=== PATIENT | female | born 1945 | race Caucasian/White ===

== ENCOUNTER 2022-12-15 11:55 | Emergency (ER) | payer MEDICARE, SELFPAY ==
[2022-12-15 12:04] VITALS: BP 132/50; PULSE 57; RESP 18; TEMP 36.8; O2SAT 99
--- NOTE | 2022-12-15 12:30 | DI.CT_ITS ---
Exam(s) CT LUMBAR SPINE WO EXAM: CT LUMBAR SPINE WO CLINICAL HISTORY: back trauma. TECHNIQUE: Imaging Protocol: Axial computed tomography images with coronal and sagittal reformatted images were created and reviewed. COMPARISON: No exams were available for comparison FINDINGS: Bones: There are old superior compression deformities of T12, L1 and L2. There is a superior nash josue fracture deformity of L3 which appears acute. There is loss of 20 percent of the height of the vertebral body. There is a superior compression fracture deformity of L4 which does not appear to be acute. 2-3 mm anterolisthesis of L4 on L5 is present. This appears to be degenerative in nature. There are degenerative changes of the facets throughout the lumbar spine most marked at L4-5 and L5-S 1. The bones are osteopenic. Soft tissues: There do appear to be gallstones present. Atherosclerosis is present. No large disk h erniations are identified. IMPRESSION: 1. Acute appearing fracture of the superior endplate of L3 with loss of approximately 20 percent of t he height of the vertebral body. 2. Old compression fracture deformities of T12, L1, L2 and L4. 3. Osteopenia. 4. Findings were discussed with Dr. Mitzy Villatoro at 1:13 p.m. on 12/15/2022. RADIATION DOSE DELIVERED: 419.13mGy.cm Total DLP 419.13mGy.cm Total DLP DATA REPOSITORY: All CT scans at this facility are submitted to the National Radiology Data Registry (NRDR) Dose Index Registry (DIR) with the [employer] ([employer]). RADIATION OPTIMIZATION: All CT scans at this facility use at least one of these dose optimization te chniques: automated exposure control; mA and/or kV adjustment per patient size (includes targeted exa ms where dose is matched to clinical indication); or iterative reconstruction.
--- NOTE | 2022-12-15 12:34 | ED.GENADUL_ITS ---
Discharge Plan Disposition Patient Disposition: Home Discharge Details Clinical Impression: Acute low back pain due to trauma, Closed compression fracture of L3 vertebra Primary Care Provider: Unknown,Unknown ED Provider: Mitchell Villatoro Home Meds and New Rx's Prescriptions: New cyclobenzaprine 10 mg tablet 10 mg PO TID PRNQty: 30 0RF Continued citalopram 10 mg tablet 1 mg PO DAILY Patient Comments: TAKE 1 TABLET BY MOUTH ONCE DAILY furosemide 20 mg tablet 2 mg PO DAILY Patient Comments: TAKE 2 TO 3 TABLETS BY MOUTH ONCE DAILY Discharge Instructions Instructions: Vertebral Compression Fracture (ED) Additional Instructions: You were seen in the emergency department for low back pain after a fall. We performed a CAT scan and is showing a new acute compression fracture of the L3 vertebrae. You have some old compression fractures as well. Take [id number] Tylenol and Motrin per bottle directions over the next week to help with your symptoms. I have given you some cyclobenzaprine/Flexeril which is a muscle relaxant to help with your symptoms additionally but will make you sleepy so do not drive or operate machinery if you are going to take it. Follow-up with orthopedics team and your primary care doctor about this finding. Return for any worsening symptoms such as worsening pain, lower extremity weakness/numbness/tingling, or any changes to your bowel or bladder habits such as loss of control of your bowel or bladder or retention. Follow-up with your primary care doctor. Referrals: [facility] [Provider Group] - 1 week Medical Decision Making 77-year-old female presents with right low back pain after fall. Gives a good story for mechanical fall so no role for medical work-up of fall. Isolated trauma with no other signs of injury. Has low back pain and given her age could have compression fracture or other fracture we will get CT lumbar spine. Offered her labs but she refused which I think is reasonable as I do not think she will have any acute lab abnormalities in the setting of this very minor fall 1 week ago. No hit head and no loss of consciousness and no head or neck pain now so no role for CT imaging of the head or cervical spine at this time. Will provide some analgesia and await CT lumbar spine and reevaluate. Imaging Data Radiologic Study: Attestation: I personally reviewed and interpreted this imaging study as follows: Imaging: CT Scan (lumbar spine) Radiologist's impression: IMPRESSION: 1. Acute appearing fracture of the superior endplate of L3 with loss of approximately 20 percent of the height of the vertebral body. 2. Old compression fracture deformities of T12, L1, L2 and L4. 3. Osteopenia. 4. Findings were discussed with Dr. Mitzy Villatoro at 1:13 p.m. on 12/15/2022. HPI General Date/Time Provider Initiated Documentation: 12/15/22 12:26 . Limitations to Documentation: no limitations . Information obtained by: patient and family (sister) . HPI Narrative: 77-year-old female previously healthy presents with low back pain. Said about a week ago she excellently slipped and fell down onto her butt. Has had low back pain since then. It had not gotten better so she came here. No worsening of symptoms and says she still walking but because that have gotten better she came here. No abdominal pain, chest pain, shortness of breath. No hit head or loss of consciousness. No preceding symptoms. No hip or leg pain. Denies any other injuries. Still pooping and peeing normally. Related Data Home Medications Medication Instructions Recorded Confirmed citalopram 10 mg tablet 1 mg PO DAILY 12/15/22 12/15/22 cyclobenzaprine 10 mg tablet 10 mg PO TID PRN #30 tabs 12/15/22 furosemide 20 mg tablet 2 mg PO DAILY 12/15/22 12/15/22 Previous Rx's Medication Instructions Recorded cyclobenzaprine 10 mg tablet 10 mg PO TID PRN #30 tabs 12/15/22 Allergies Allergy/AdvReac Type Severity Reaction Status Date / Time magnesium Allergy Unverified 12/15/22 12:24 morphine Allergy Unverified 12/15/22 12:24 General Stated Complaint: Nk/Back Pain LUCIANA: 4 Review of Systems Constitutional Constitutional: Denies chills, Denies fever(s) and Denies headache(s) Eyes Eyes: Denies change in vision ENT Ears, Nose, Mouth, and Throat: Denies headache(s) and Denies odynophagia Cardiovascular Cardiovascular: Denies chest pain and Denies dyspnea Respiratory Respiratory: Denies dyspnea Gastrointestinal Gastrointestinal: Denies abdominal pain, Denies diarrhea, Denies nausea, Denies odynophagia and Denies vomiting Genitourinary Genitourinary: Denies dysuria Musculoskeletal Musculoskeletal: Reports back pain and Denies myalgias Integumentary/Breasts Skin/Breast: Denies changing lesions Neurologic Neurologic: Denies behavioral changes and Denies headache(s) Psychiatric Psychiatric: Denies behavioral changes Endocrine Endocrine: Denies heat intolerance Hematologic/Lymphatic Hematologic/Lymphatic: Denies lymphadenopathy PFSH All Active Problems (Updated 12/15/22 @ 13:37 by Mitchell Villatoro MD) Acute low back pain due to trauma (Acute) Closed compression fracture of L3 vertebra (Acute) Social History Smoking/Tobacco Use Status: Never Smoking risk assessment performed?: Yes Alcohol Intake: never Drug use: Never Substance use type: does not use Do you feel safe at home: Yes Do you feel safe in your relationship?: Yes Exam Const General: cooperative Nutritional Appearance: average body habitus Orientation: alert, awake and oriented x3 HENMT Head: normal to inspection Ears: external ears normal Mouth: moist mucous membranes Eyes Pupils: PERRL EOM: EOM intact bilaterally and No nystagmus Neck Neck: full ROM and no tracheal deviation Chest Chest: normal inspection of the chest, normal palpation of entire chest wall and no localized rib tenderness Resp Auscultation: clear to auscultation bilaterally Cardio Rate: regular rate Rhythm: regular rhythm GI Inspection: normal to inspection Palpation: soft, no guarding, not rigid and nontender Back/Spine/Pelvis Back: No no CVA tenderness Other: Tenderness throughout the midline and paraspinal muscles of the lumbar spine. No obvious deformities or step-offs. No cervical or thoracic tenderness. Skin General skin exam: no rashes or lesions noted Neuro General: patient alert, patient awake and patient oriented x3 Cranial Nerves: CN's II-XI intact bilaterally, PERRL and no nystagmus Cognition: normal cognition Motor: muscle tone normal throughout and strength 5/5 throughout Sensory Exam: no sensory deficits noted Extrem General: normal to inspection Other: No tenderness to palpation to any of the extremities. No signs of trauma to the extremities. Strength and sensation intact in all 4 extremities. Course Reevaluation(s) Time: 13:36 Reevaluation: CT is showing superior endplate fracture of L3 with approximately 20% loss of height. Some old findings additionally with old compression fractures. Does not need acute intervention. Recommended she take Tylenol and Motrin and I will send a prescription for Flexeril additionally. We will give her follow-up with the orthopedics team and she can talk to them about further options. Patient and family agreeable with this plan. Will discharge with return precautions. Vital Signs Vital signs: Vital Signs Temperature 36.8 C 12/15/22 12:04 Pulse 57 L 12/15/22 12:04 Respiratory Rate 18 12/15/22 12:04 Blood Pressure 132/50 L 12/15/22 12:04 Pulse Oximetry 99 12/15/22 12:04 Temperature 36.8 C 12/15/22 12:04 Temperature Source Oral 12/15/22 12:04 Pulse 57 L 12/15/22 12:04 Respiratory Rate 18 12/15/22 12:04 Respiratory Effort Normal, Non-Labored 12/15/22 12:27 Blood Pressure 132/50 L 12/15/22 12:04 Blood Pressure Position Sitting 12/15/22 12:04 Pulse Oximetry 99 12/15/22 12:04 Oxygen Delivery Method Room Air 12/15/22 12:04 Oxygen Flow Rate 0 12/15/22 12:04 Pain Level 7 12/15/22 12:04
[2022-12-15] MEDS: Ibuprofen 600 MG TAB PO (12:46)
[2022-12-15 14:03] VITALS: BP 131/63; PULSE 56; RESP 16; TEMP 36.5; O2SAT 97
== END 2022-12-15 14:06 | disposition home or self-care (01) ==
PROVIDERS: Emergency Provider Student in an Organized Health Care Education/Training Program
DX: S32.030A Wedge compression fracture of third lumbar vertebra, initial encounter for closed fracture (principal); W01.0XXA Fall on same level from slipping, tripping and stumbling without subsequent striking against object, initial encounter
CPT/HCPCS: 99284; 72131

== ENCOUNTER 2023-01-04 13:51 | Outpatient (REF) | payer MEDICARE, SELFPAY ==
[2023-01-04 15:49] LABS: Abs Immature Grans 0.03 10^3/uL (0.0-0.06); Absolute Basophil Count 0.04 10^3/uL (0.0-0.2); Absolute Eosinophil Count 0.07 10^3/uL (0.0-0.7); Absolute Lymphocyte Count 1.16 10^3/uL (1.2-3.4); Absolute Monocyte Count 0.79 10^3/uL (0.1-0.8); Absolute Neutrophil Count 4.88 10^3/uL (1.2-6.7); Basophils % 0.6; HCT 35.4 % (36.0-46.0); HGB 11.5 g/dL (11.2-15.7); Immature Grans % 0.4; Lymphocytes % 16.6; MCH 30.8 pg (27.0-33.0); MCHC 32.5 % (32.0-36.0); MCV 95 fL (80-95); MPV 10.8 fL (8.0-11.0); Monocytes % 11.3; Neutrophils % 70.1; Platelet Count 265 10^3/uL (130-400); RBC 3.73 10^6/uL (3.93-5.22); RDW-SD 45.1 fL; WBC 6.97 10^3/uL (4.4-10.8)
[2023-01-04 16:20] LABS: ALT 16 U/L (14-59); AST 18 U/L (15-37); Albumin 3.9 g/dL (3.4-5.0); Alkaline Phosphatase 147 U/L (46-116); Anion Gap 8.2 mmol/L (3-11); BUN 18 mg/dL (7-18); Bilirubin, Total 0.5 mg/dL (0.2-1.0); CO2 30.8 mmol/L (21.0-32.0); CREATININE 0.8 mg/dL (0.55-1.02); Calcium 8.9 mg/dL (8.5-10.1); Chloride 97 mmol/L (98-107); Glucose 68 mg/dL (74-106); Potassium 4.6 mmol/L (3.5-5.1); Sodium 136 mmol/L (136-145); TSH (W/Ref FT4) 1.57 uIU/mL (0.36-3.74); Total Protein 7.5 g/dL (6.4-8.2)
[2023-01-04 16:32] LABS: Vitamin D 25 Total 21.4 ng/mL (30-100)
== END 2023-01-04 13:52 | disposition home or self-care (01) ==
LOC: NCHCN 13:51
PROVIDERS: Visit Provider Family Medicine
DX: I50.42 Chronic combined systolic (congestive) and diastolic (congestive) heart failure (principal); M81.0 Age-related osteoporosis without current pathological fracture; Z87.81 Personal history of (healed) traumatic fracture
CPT/HCPCS: 80053; 82306; 84443; 85025

== ENCOUNTER 2023-02-18 20:56 | Outpatient (REF) | payer MEDICARE, SELFPAY | END 2023-02-18 20:57 | disposition home or self-care (01) | LOC: NCHCN 20:56 | PROVIDERS: Visit Provider Family Medicine | DX: L03.90 Cellulitis, unspecified (principal); R82.998 Other abnormal findings in urine | CPT/HCPCS: 87077; 87070; 87186; 87205 ==

== ENCOUNTER 2024-11-08 16:29 | Outpatient (REF) | payer MEDICARE, SELFPAY ==
[2024-11-08 21:22] LABS: Abs Immature Grans 0.03 10^3/uL (0.0-0.06); Absolute Basophil Count 0.04 10^3/uL (0.0-0.2); Absolute Eosinophil Count 0.09 10^3/uL (0.0-0.7); Absolute Monocyte Count 0.61 10^3/uL (0.1-0.8); Absolute Neutrophil Count 5.99 10^3/uL (1.2-6.7); Basophils % 0.5 %; Eosinophils % 1.1 %; HCT 37.7 % (36.0-46.0); HGB 12.9 g/dL (11.2-15.7); Immature Grans % 0.4 %; Lymphocytes % 16.1 %; MCH 31.3 pg (27.0-33.0); MCHC 34.2 % (32.0-36.0); MCV 92 fL (80-95); MPV 11.3 fL (8.0-11.0); Monocytes % 7.6 %; Neutrophils % 74.3 %; Platelet Count 203 10^3/uL (130-400); RBC 4.12 10^6/uL (3.93-5.22); RDW 12.3 % (11.7-14.6); RDW-SD 41.1 fL; WBC 8.06 10^3/uL (4.4-10.8)
[2024-11-08 21:36] LABS: Anion Gap 12.4 mmol/L (3-11); BUN 17 mg/dL (7-18); CO2 27.6 mmol/L (21.0-32.0); CREATININE 0.7 mg/dL (0.55-1.02); Calcium 9.5 mg/dL (8.5-10.1); Chloride 98 mmol/L (98-107); Estimated GFR 86.83 (mL/min/1.73m2); Glucose 91 mg/dL (74-106); Potassium 3.6 mmol/L (3.5-5.1); Sodium 138 mmol/L (136-145)
== END 2024-11-08 16:30 | disposition home or self-care (01) ==
LOC: NCHCN 16:29
PROVIDERS: Visit Provider Family Medicine
DX: I50.42 Chronic combined systolic (congestive) and diastolic (congestive) heart failure (principal)
CPT/HCPCS: 80048; 85025